=== PATIENT | male | born 1960 | race Caucasian/White ===

== ENCOUNTER 2017-02-22 05:51 | Inpatient (IN) | payer BC ==
--- NOTE | 2017-02-09 16:37 | HP ---
HISTORY AND PHYSICAL: DATE OF ADMISSION/SURGERY: 02/22/17. DATE OF OFFICE VISIT: 02/09/17. SURGEON: Savannah Wright MD * (DICTATED BY MARKEL WILLIS) PROCEDURE: Right total hip arthroplasty. CHIEF COMPLAINT: Right hip pain. HISTORY OF PRESENT ILLNESS: Mr. Reyes is a 56-year-old gentleman with complaints of right hip pain secondary to endstage osteoarthritis. He has failed conservative management and has elected to proceed with a right total hip arthroplasty which is scheduled for 02/22/17. PAST MEDICAL HISTORY: Hypertension, high cholesterol, GERD. PAST SURGICAL HISTORY: Hernia repair x2. CURRENT MEDICATIONS: 1. Tramadol. 2. Lisinopril/hydrochlorothiazide. 3. Atorvastatin. 4. Calcium. 5. Amlodipine. ALLERGIES: None. FAMILY HISTORY: Hypertension, heart disease, cancer. SOCIAL HISTORY: A 56-year-old gentleman lives with his . He does not smoke or use drugs. REVIEW OF SYSTEMS: A complete 14-point review of systems is reviewed with the patient is all negative or noncontributory. PHYSICAL EXAMINATION GENERAL: Well-developed, well-nourished, in no acute distress. VITAL SIGNS: He stands 5 feet 8 inches tall, weighs 190 pounds. Her blood pressure is 129/60, heart rate 68. HEENT: Normocephalic, atraumatic. NECK: Supple. No palpable nodes. PULMONARY: Lungs are clear to auscultation bilaterally. CARDIO: Regular rate and rhythm. Strong S1 and S2. ABDOMEN: Soft, nontender, nondistended. MUSCULOSKELETAL: Right lower extremity: Skin is intact. There are no open wounds or abrasions. 2+ dorsalis pedis pulses and intact sensation. Lower extremity muscle strength is intact at 5/5. ASSESSMENT AND PLAN: Mr. Reyes is a 56-year-old gentleman with complaints of right hip pain secondary to advanced osteoarthritis. He has failed conservative management and has elected to proceed with a right total hip arthroplasty which is scheduled by Dr. Wright on 02/22/17. Dr. Wright discussed the risks and benefits of the surgery at today's visit and all of his questions were answered. Coumadin, Percocet, and Colace were sent to his pharmacy for postoperative pain control and DVT prophylaxis. He will see Dr. Wright back 2 weeks after the surgery. MARKEL WILLIS [id number]/[facility] #: [id number] [facility] SYSTEMElaine
[~2017-02-22 05:51] MED LIST: Buffered Lidocaine 0.9% SYRIN* 5 ML/SYR SYRINGE INTRADERM ONE
[2017-02-22] MEDS ORDERED: ceFAZolin 2 GM PREMIX (*) 50 ML IVPB ONE (05:57)
[2017-02-22] MEDS ORDERED: Gabapentin CAP(*) 300 MG ONE (05:57)
[2017-02-22] MEDS ORDERED: Buffered Lidocaine 0.9% SYRIN* 5 ML/SYR SYRINGE ONE (05:57)
[2017-02-22] MEDS ORDERED: Gabapentin CAP(*) 400 MG PO ONE (06:00)
[2017-02-22] MEDS ORDERED: fentaNYL* 50 MCG/ML 2 ML VIAL (100 MCG VIAL) ONE ×3 (07:31→10:36)
[2017-02-22] MEDS ORDERED: Midazolam* 1 MG/ML 5 ML VIAL (5 MG) ONE (07:31)
[2017-02-22] MEDS ORDERED: Bupivacaine 0.5% SDV PF* 30 ML VIAL ONE (07:32)
[2017-02-22] MEDS ORDERED: Morphine PF AMP (0.5MG/ML)* 5 MG/10 ML AMP ONE (07:32)
[2017-02-22] MEDS ORDERED: Propofol* 500 MG/50 ML BTL ONE (07:52)
[2017-02-22] MEDS ORDERED: EPHEDrine (Pressors)* 50 MG/ML VIAL ONE (08:12)
[2017-02-22] MEDS ORDERED: Phenylephrine IV* 40 MCG/ML 10 ML SYRINGE ONE (08:35)
[2017-02-22] MEDS ORDERED: DiMENhydriNATE IV* 50 MG/ML VIAL IV PUSH PRN (08:42)
[2017-02-22] MEDS ORDERED: Ondansetron INJ* 2 MG/ML VIAL IV PRN (08:42)
[2017-02-22] MEDS ORDERED: Naloxone* 0.4 MG/ML 1 ML VIAL IV PRN (08:42)
[2017-02-22] MEDS ORDERED: Nalbuphine* 20 MG/ML 1 ML VIAL IV PRN (08:42)
[2017-02-22] MEDS ORDERED: Ketorolac INJ* 30 MG/ML 1 ML VIAL IV PRN (08:44)
--- NOTE | 2017-02-22 10:10 | RAD ---
Indication: Right hip replacement. Single view of the right hip taken in the operating room demonstrates right hip replacement. Femoral reamer in place. Acetabular cup is in place. IMPRESSION: Intraoperative control films for right hip arthroplasty.
[2017-02-22] MEDS: fentaNYL* 50 MCG/ML 2 ML VIAL (100 MCG VIAL) IV PRN ×3 (10:28→10:51)
[2017-02-22] MEDS ORDERED: Bisacodyl SUPP* 10 MG SUPP PR PRN (10:32)
[2017-02-22] MEDS ORDERED: diPHENhydraMINE IV* 50 MG/ML 1 ml VIAL (BENADRYL) IV PRN (10:32)
[2017-02-22] MEDS ORDERED: Acetaminophen TAB* 325 MG PO PRN (10:32)
[2017-02-22] MEDS ORDERED: Polyethylene Glycol 3350* 17 GM PACKET PO PRN (10:32)
[2017-02-22] MEDS ORDERED: Morphine INJ* 10 MG/ML 1 ML CARPUJECT IV PRN (10:32)
[2017-02-22] MEDS ORDERED: oxyCODONE TAB* 5 MG TAB ONE ×2 (10:36→20:58)
[2017-02-22] MEDS ORDERED: Ketorolac INJ* 30 MG/ML 1 ML VIAL ONE (10:36)
[2017-02-22] MEDS: oxyCODONE TAB* 5 MG TAB PO PRN ×3 (10:38→21:01)
--- NOTE | 2017-02-22 11:21 | RAD ---
Indication: Right total hip replacement. 2 views of the right hip and an AP view the pelvis demonstrates right hip replacement in satisfactory position. No loosening is noted. IMPRESSION: Right hip replacement in satisfactory position.
[2017-02-22] MEDS ORDERED: HYDROmorphone INJ* 1 MG/ML CARPUJECT SYRINGE IV PRN (16:40)
[2017-02-22] MEDS: ceFAZolin 1 GM VIAL(*) 1 GM in NS 0.9% 50 ML* 50 ML IVPB SCH ×2 (16:54→23:42)
[2017-02-22] MEDS ORDERED: Warfarin TAB(*) 4 MG PO ONE (17:00)
[2017-02-22] MEDS: Docusate CAP* 100 MG PO SCH (20:55)
[2017-02-22] MEDS: Magnesium Hydroxide LIQ* 30 ML UDC PO SCH (20:55)
[2017-02-23] MEDS ORDERED: Ondansetron TAB* 4 MG PO PRN (00:42)
[2017-02-23] MEDS ORDERED: Ondansetron INJ* 2 MG/ML VIAL IV PRN (00:42)
[2017-02-23] MEDS: oxyCODONE TAB* 5 MG TAB PO PRN ×5 (01:39→20:41)
[2017-02-23 06:31] LABS: Hematocrit 33 % (42-52); Hemoglobin 11.1 g/dl (14.0-18.0)
[2017-02-23 06:47] LABS: BUN/Creatinine Ratio 12.8 (8-20); Calcium 7.9 mg/dL (8.6-10.3); EGFR African American 131.5 (>60); EGFR Non-African American 102.2 (>60); Potassium 3.9 mmol/L (3.5-5.0)
[2017-02-23] MEDS: Lisinopril TAB* 10 MG PO SCH ×2 (07:31→08:54)
[2017-02-23] MEDS: amLODIPine TAB* 5 MG PO SCH ×2 (07:31→08:54)
[2017-02-23] MEDS: Hydrochlorothiazide TAB* 25 MG PO SCH ×2 (07:31→08:54)
[2017-02-23] MEDS: ceFAZolin 1 GM VIAL(*) 1 GM in NS 0.9% 50 ML* 50 ML IVPB SCH (07:56)
[2017-02-23] MEDS: Vitamin THERAPEUTIC TAB PO SCH (08:51)
[2017-02-23] MEDS: Atorvastatin* 20 MG TAB PO SCH (08:51)
[2017-02-23] MEDS: Docusate CAP* 100 MG PO SCH ×2 (08:52→20:42)
[2017-02-23] MEDS: Magnesium Hydroxide LIQ* 30 ML UDC PO SCH ×2 (08:53→20:42)
[2017-02-23] MEDS: oxyCODONE/Acetamin 5/325 MG* TAB PO PRN ×2 (09:25→14:04)
[2017-02-23] MEDS: Enoxaparin(*) 40 MG/0.4 ML SYR SUBCUT SCH (11:35)
--- NOTE | 2017-02-23 11:40 | PN ---
Progress Note - Progress Note Date of Service: 02/23/17 SOAP: Subjective: []Patient seen OOB in his chair. His hip pain is minimal, had more discomfort in his lumbar spine due to sleeping on his back, feels better now in chair. Denies SOB, CP or dizziness. Objective: [] Vital Signs Temp 99.9 F 02/23/17 04:27 Pulse 70 02/23/17 08:07 Resp 16 02/23/17 11:25 BP 122/59 02/23/17 08:07 Pulse Ox 97 02/23/17 11:16 Intake & Output 02/22/17 02/23/17 02/23/17 18:59 06:59 18:59 Intake Total 4370 2183 470 Output Total 1750 3500 Balance 2620 -1317 470 Intake: IV Fluids 3650 1883 LR 3650 1883 Oral 720 300 470 Output: Smith 1750 3500 Laboratory Results - last 24 hr 02/23/17 02/23/17 02/23/17 05:54 05:54 05:54 Hgb 11.1 L Hct 33 L INR (Anticoag Therapy) 1.02 Sodium 131 L Potassium 3.9 Chloride 99 L Carbon Dioxide 27 Anion Gap 5 BUN 10 Creatinine 0.78 Est GFR ( Amer) 131.5 Est GFR (Non-Af Amer) 102.2 BUN/Creatinine Ratio 12.8 Glucose 136 H Calcium 7.9 L Right hip dressings dry and intact +DF/PF right ankle calf NT and soft sensation and circulation intact Assessment: []s/p Right total hip arthroplasty POD #1 Plan: []PT/OT WBAT RLE Coumadin with Lovenox bridge- 8 mg today Home in 1-2 days
--- NOTE | 2017-02-23 13:23 | OP ---
OPERATIVE NOTE: DATE OF OPERATION: 02/22/17 - Inpatient, [facility] room 334-01. DATE OF : 56 ATTENDING SURGEON: Savannah Wright MD. MANAGER DIGITAL: MARKEL Mason. Ms. Wise did help throughout the procedure with preparation of the leg, wound retraction, manipulation of the hip, and wound closure. ANESTHESIOLOGIST: Dr. Celis. ANESTHESIA: Spinal. PRE-OP DIAGNOSIS: Severe end-stage degenerative osteoarthritis of the right hip joint. POST-OP DIAGNOSIS: Severe end-stage degenerative osteoarthritis of the right hip joint. OPERATIVE PROCEDURE: Right total hip arthroplasty. HARDWARE USED: Uncemented Shalini total hip hardware. For the cup a Tritanium hemispherical cluster hole shell 56E, a single 20-mm cancellous bone screw was used. For the liner an MDM cementless liner 42E. For the femoral stem an Accolade TMZF size 3.5 with a 132 degree neck. For the head a 28 -4 Biolox delta ceramic V40 femoral head with episcopalian MDM X3 insert, E. BRIEF HISTORY/INDICATIONS: Mr. Reyes is a 56-year-old gentleman with several years of increasingly severe right hip pain related to his adv anced osteoarthritis. He failed conservative treatment with antiinflammatories, physical therapy, pain medication, and activity modification. Radiographs confirmed ppyv-[id number] arthritis of the right hip joint. Due to continued pain and decreased quality of life, the patient elected to undergo a right total hip arthroplasty. Informed consent was obtained from the patient. He understood the risks of this procedure included, but were not limited to, bleeding, infection, damage to nearby structures, continued pain, need for further surgery , intraoperative fracture, nerve palsy, hardware failure or loosening, leg length discrepancy, dislocation, stroke, heart attack, blood clot, and . He wished to proceed. INTRAOPERATIVE FINDINGS: Intraoperatively, the patient was noted to have complete loss of cartilage at the femoral head and acetabulum. He had significant osteophyte formation over the medial acetabulum. DESCRIPTION OF PROCEDURE: Mr. Reyes was identified in the preanesthesia unit. Right lower extremity was marked as the correct operative site. Informed consent was signed and placed in the chart. The patient was taken to the operating room and placed under spinal anesthesia without difficulty. Smith catheter was placed. The patient was placed in the left lateral decubitus position on the PEG board. All bony prominences were well padded. Right lower extremity was prepped and draped in the usual sterile fashion. Preop time-out was made to correctly identify the patient side and site. Appropriate perioperative antibiotics were given within 1 hour of incision. A 14-cm posterior hip incision was made with a 10 blade and carried down to the lateral fascial layer. Lateral fascial layer was incised in line with the skin incision. Charnley retractor was placed. The piriformis and conjoint tendons were identified on the posterolateral femur and elevated with electrocautery. These were tagged with #5 Ethibond. Next, electrocautery was used to make a standard posterolateral capsular flap. This was also tagged with #5 Ethibond. The hip was carefully dislocated. Lesser troch to the center of the femoral head measured 58 mm. The oscillating saw was used to make the appropriate femoral neck cut. Femoral head was sent to pathology. The femur was carefully retracted anteriorly. After appropriate placement of retractors the acetabulum was easily visualized. Long-handled knife was used to remove any remaining labrum from the acetabular rim. The acetabulum was sequentially reamed up to a size 55. A bleeding subchondral bone bed was obtained. Size 55 trial had god fit. Final implant chosen was a 56 Tritanium cluster hole shell. This was impacted into the acetabulum without difficulty. Excellent stability was obtained. Appropriate anteversion and abduction angle was obtained. A single 20 mm screw was placed in the superior posterior quadrant for extra stability. MDM cementless liner was chosen. This was impacted into the acetabulum without difficulty. Stability of the liner was checked and rechecked and noted to be stable. Next, attention was turned to preparation of the proximal femur. Box cut osteotome and canal finder were used to enter the proximal femur. Proximal femur was sequentially broached up to a size 3.5. Size 3.5 broach had good fit. There was appropriate anteversion. A 132 neck trial was placed as well as a 28 +0 femoral head trial. Lesser troch to the center of the femoral head measured 62 mm, therefore a 28 -4 femoral head trial was chosen as well as the appropriate 28/48/42E MDM liner insert trial. The hip was reduced and taken through a range of motion. The hip was stable in all positions. There was appropriate soft tissue tension and leg lengths. The hip was carefully dislocated. All trials were carefully removed. Final femoral stem chosen was an Accolade TMZF with a size 3.5 with a 132-degree neck. This was impacted into the femoral canal without difficulty. There was good stability and anteversion. For the final femoral head Biolox delta ceramic 28 -4 femoral head was chosen as well as MDM insert X3, 28/48/42E. This was impacted on to the femoral neck without difficulty. Lesser troch to the center of the femoral head measured approximately 58 mm. The hip was copiously irrigated with sterile saline. The hip was carefully reduced and taken through range of motion. The hip was stable in all positions. Previously tagged capsule and tendons were reapproximated to the posterolateral femur using 2 trochanteric drill holes. The lateral fascial layer was reapproximated using interrupted #1 Vicryl. The rest of the incision was closed in a layered fashion using 0 and 2-0 Vicryl. Skin was closed using running 3-0 Monocryl and Dermabond. Sterile Adaptic, 4x4s, and paper tape were used to cover the incision. The patient's anesthesia was reversed without difficulty. He was taken to the PACU in stable condition. Intended weight bearing will be weightbearing as tolerated. Intended DVT prophylaxis will be Coumadin with a Lovenox bridge. [id number]/[facility] #: [id number] NATALIA
[2017-02-23] MEDS ORDERED: Warfarin TAB(*) 4 MG PO ONE (17:00)
[2017-02-24] MEDS: oxyCODONE TAB* 5 MG TAB PO PRN ×3 (00:49→09:33)
[2017-02-24 08:25] LABS: Hematocrit 32 % (42-52); Hemoglobin 10.9 g/dl (14.0-18.0)
--- NOTE | 2017-02-24 09:07 | PN ---
Progress Note - Progress Note Date of Service: 02/24/17 SOAP: Subjective: Pt. is alert, pain controlled. Objective: RLE - dressing changed, inc c/d/i. distally nvi. min edema. Vital Signs: Temp Pulse Resp BP Pulse Ox 99.0 F 77 16 121/67 97 02/24/17 07:31 02/24/17 07:31 02/24/17 07:33 02/24/17 07:31 02/24/17 08:22 Laboratory Results - last 24 hr 02/24/17 02/24/17 07:54 07:54 Hgb 10.9 L Hct 32 L INR (Anticoag Therapy) 1.14 H Assessment: 56 yo M pod 2 s/p RTHA Plan: wbat rle lovenox today, d/c coumadin home on ecasa d/c to home today
[2017-02-24] MEDS: Atorvastatin* 20 MG TAB PO SCH (09:31)
[2017-02-24] MEDS: Docusate CAP* 100 MG PO SCH (09:31)
[2017-02-24] MEDS: Vitamin THERAPEUTIC TAB PO SCH (09:32)
[2017-02-24] MEDS: amLODIPine TAB* 5 MG PO SCH (09:32)
[2017-02-24] MEDS: Lisinopril TAB* 10 MG PO SCH (09:32)
[2017-02-24] MEDS: Hydrochlorothiazide TAB* 25 MG PO SCH (09:32)
[2017-02-24] MEDS: Magnesium Hydroxide LIQ* 30 ML UDC PO SCH (09:36)
[2017-02-24] MEDS: Enoxaparin(*) 40 MG/0.4 ML SYR SUBCUT SCH (11:22)
[2017-02-24 11:51] VITALS: BP 113/67
--- NOTE | 2017-02-24 13:16 | DS ---
AMENDED REPORT NOW INCLUDES COSIGNER DESIGNATION - ESIGNED BEFORE ADJUSTMENT DISCHARGE SUMMARY: DATE OF ADMISSION: 02/22/17 DATE OF DISCHARGE: 02/24/17 PROVIDER: Savannah Wright MD * (DICTATED BY MARKEL HENRY) ADMITTING DIAGNOSIS: Severe end-stage osteoarthritis of the right hip. DISCHARGE DIAGNOSIS: Severe end-stage osteoarthritis of the right hip, status post right total hip arthroplasty. HISTORY OF PRESENT ILLNESS: Mr. Reyes is a 56-year-old gentleman, who has had ongoing complaints of right hip pain secondary to severe osteoarthritis. He failed conservative management and elected to proceed with right total hip arthroplasty. HOSPITAL COURSE: On 02/22/17, the patient was admitted to [facility] and underwent successful right total hip arthroplasty by Dr. Wright. He recovered briefly in the postanesthesia care unit and was transferred to the short-stay surgical unit in stable condition. His pain was well controlled with oral and IV pain medications on postop day 0, he was also given 8 mg of Coumadin. On postop day 1, the patient's pain was well controlled with oral pain medication. H and H was stable at 11.1, and 33, INR was 1.02. He was given an additional 8 mg of Coumadin on the evening of postop day 1. He was able to ambulate with physical therapy and the use of a rolling walker. Postop day 2, the patient pain was controlled with oral pain medications only. He had H and H of 10.9 and 32. INR was 1.14 with 8 mg of Coumadin previously. He again was able to ambulate well with a rolling walker, with physical therapy. He was reminded of posterior hip precautions throughout his hospital stay. His vital signs remained stable and he was afebrile throughout his hospital course as well. Postop day 2, the patient was found stable for discharge home. DISCHARGE MEDICATIONS: The patient will have: 1. Percocet 5/325 mg 1 to 2 tablets p.o. q.4 to 6 hours p.r.n. pain. 2. Colace 100 mg p.o. b.i.d. 3. Aspirin 325 mg p.o. b.i.d. He will resume his home medications of: 1. Atorvastatin 20 mg p.o. daily. 2. Lisinopril/HCTZ 20/12.5 mg p.o. daily. 3. Amlodipine 5 mg p.o. daily. DISCHARGE INSTRUCTIONS: The patient is understanding to keep his incision clean and dry until postop day 4. He may remove his dressing and shower normally at that time. He will apply a dry dressing as needed after that. He is understanding not to submerge the incision in a bathtub, hot tub or swimming pool. He was again reminded to continue with his posterior hip precautions. He will be weightbearing as tolerated with the use of a rolling walker. He will have visiting nurse for wound care and home physical therapy. He will follow up in the office 10 to [address] Wright. He is understanding to call the office with any questions or concerns. He is to go directly to the emergency room with any chest pain, shortness of breath, fever greater than 101.5, calf pain or swelling. MARKEL HENRY [id number]/[facility] #: [id number] NATALIA
== END 2017-02-24 12:20 | disposition home health service (06) | DRG 301 ==
LOC: AA 05:51 → SSU 11:46
PROVIDERS: ADMIT Orthopaedic Surgery Adult Reconstructive Orthopaedic Surgery; ATTEND Orthopaedic Surgery Adult Reconstructive Orthopaedic Surgery
PROC: 0SR904A Replacement of Right Hip Joint with Ceramic on Polyethylene Synthetic Substitute, Uncemented, Open Approach (ICD-10-PCS; principal; 2017-02-22 07:30)
DX: M16.11 Unilateral primary osteoarthritis, right hip (principal); I10 Essential (primary) hypertension; Z79.82 Long term (current) use of aspirin; E78.00 Pure hypercholesterolemia, unspecified; K21.9 Gastro-esophageal reflux disease without esophagitis; Z82.49 Family history of ischemic heart disease and other diseases of the circulatory system; Z80.9 Family history of malignant neoplasm, unspecified; M48.06 Spinal stenosis, lumbar region; M25.751 Osteophyte, right hip
CPT/HCPCS: 36415; 80048; 85014; 85018; 85610; 94760; A9270-GY; C1713; C1776; J0690; J1650; J1885; J2250; J2270; J2405; J2704; J3010

== ENCOUNTER 2017-05-10 06:26 | Inpatient (IN) | payer BC ==
--- NOTE | 2017-04-27 12:22 | HP ---
HISTORY AND PHYSICAL: DATE OF SURGERY: 05/10/17 DATE OF OFFICE VISIT: 04/27/17 SURGEON: Savannah Wright MD * (DICTATED BY MARKEL WILLIS) PROCEDURE: Left total hip arthroplasty. CHIEF COMPLAINT: Left hip pain. HISTORY OF PRESENT ILLNESS: Mr. Reyes is a 56-year-old gentleman with continued complaints of left hip pain despite conservative management. He has elected to proceed with a left total hip arthroplasty which is scheduled for 05/10/[address] Wright. PAST MEDICAL HISTORY: Hypertension, GERD, and high cholesterol. PAST SURGICAL HISTORY: Right total hip arthroplasty, hernia repair x2. CURRENT MEDICATIONS: 1. Tramadol. 2. Lisinopril/hydrochlorothiazide. 3. Atorvastatin. 4. Amlodipine. 5. Aspirin. ALLERGIES: None. FAMILY HISTORY: Hypertension, heart disease, and cancer. SOCIAL HISTORY: A 56-year-old gentleman, lives with his . He works as a share dairy farmer. He does not smoke or use drugs. Uses occasional alcohol. REVIEW OF SYSTEMS: A complete 14-point review of systems was reviewed with the patient. It was positive for GERD. He denies a history of DVT, hepatitis C, HIV, MRSA, or anesthesia problems. PHYSICAL EXAMINATION GENERAL: He is well developed, well nourished, in no acute distress. He is alert and oriented x3, pleasant mood and appropriate affect. VITAL SIGNS: He stands 5 feet 8 inches tall, weighs 190 pounds. His blood pressure is 128/80, his heart rate is 78. HEENT: Normocephalic, atraumatic. NECK: Supple. No palpable lymph nodes. PULMONARY: The lungs are clear to auscultation bilaterally. CARDIO: Regular rate and rhythm. Strong S1, S2. ABDOMEN: Soft, nontender, and nondistended. NEUROLOGIC: Cranial nerves II through XII are intact. MUSCULOSKELETAL: Left lower extremity, the skin is intact. There are no open wounds or abrasions. He walks with an antalgic gait, favoring his left hip. He has decreased internal and external rotation of the left hip. He has got 5/ 5 lower extremity strength, 2+ dorsalis pedis pulses and intact sensation. ASSESSMENT AND PLAN: Mr. Reyes is a 56-year-old gentleman with continued complaints of left hip pain secondary to advanced osteoarthritis. He has failed conservative management and elected to proceed with a left total hip arthroplasty which is scheduled for 05/10/[address] Wright discussed the risks and benefits of the surgery at today's visit and all of his questions were answered. Postoperatively, he will be placed on aspirin twice daily for DVT prophylaxis. Colace and Percocet were sent to his pharmacy for postoperative pain control. He will follow up with Dr. Wright in 2 weeks after the surgery. MARKEL WILLIS [id number]/[facility] #: [id number] NATALIA
[~2017-05-10 06:26] MED LIST changes: +Buffered Lidocaine 0.9% SYRIN* 5 ML/SYR SYRINGE ONE; +Dexamethasone IV* 4 MG/ML 1 ML (4 MG) IV SLOW PU ONE; +Dexamethasone IV* 4 MG/ML 1 ML (4 MG) ONE; +Famotidine IV* 10 MG/ML 2 ML (20 mg) IV ONE; +Famotidine IV* 10 MG/ML 2 ML (20 mg) ONE; +ceFAZolin 2 GM PREMIX (*) 2 GM/50 ML BAG IVPB ONE
[2017-05-10] MEDS ORDERED: KETAMINE HCL* 50 MG/ML 10 ML VIAL ONE (07:23)
[2017-05-10] MEDS ORDERED: Midazolam* 1 MG/ML 10 ML VIAL (10 MG) ONE (07:23)
[2017-05-10] MEDS ORDERED: Morphine PF AMP (0.5MG/ML)* 5 MG/10 ML AMP ONE (07:23)
[2017-05-10] MEDS ORDERED: Ondansetron INJ* 2 MG/ML VIAL ONE (07:25)
[2017-05-10] MEDS ORDERED: Propofol* 10 MG/ML 20 ML BTL IV PUSH ONE ×2 (07:25→09:54)
[2017-05-10] MEDS ORDERED: Bupivacaine 0.5% SDV PF* 30 ML VIAL ONE (07:25)
[2017-05-10] MEDS ORDERED: oxyCODONE/Acetamin 5/325 MG* TAB PO PRN ×2 (08:22)
[2017-05-10] MEDS ORDERED: Nalbuphine* 20 MG/ML 1 ML VIAL IV PRN ×2 (08:22)
[2017-05-10] MEDS ORDERED: Naloxone* 0.4 MG/ML 1 ML VIAL IV PRN (08:22)
[2017-05-10] MEDS ORDERED: Ondansetron INJ* 2 MG/ML VIAL IV PRN (08:22)
[2017-05-10] MEDS ORDERED: DiMENhydriNATE IV* 50 MG/ML VIAL IV PUSH PRN (08:22)
[2017-05-10] MEDS ORDERED: Glycopyrrolate IV* 0.2 MG/ML 1 ML VIAL ONE (08:26)
[2017-05-10] MEDS ORDERED: EPHEDrine (Pressors)* 50 MG/ML VIAL ONE (08:34)
[2017-05-10] MEDS ORDERED: Atropine 1MG/ML INJ* 1 ML VIAL ONE (08:36)
[2017-05-10] MEDS ORDERED: Scopolamine 1.5 mg* PATCH TRANSDERM SCH (09:00)
[2017-05-10] MEDS ORDERED: Acetaminophen TAB* 325 MG PO PRN (09:06)
[2017-05-10] MEDS ORDERED: Bisacodyl SUPP* 10 MG SUPP PR PRN (09:06)
[2017-05-10] MEDS ORDERED: Polyethylene Glycol 3350* 17 GM PACKET PO PRN (09:06)
[2017-05-10] MEDS: Ropivacaine* 300 MG in NS 0.9% 250 ML* 240 ML EPIDURAL SCH ×2 (10:52→11:42)
--- NOTE | 2017-05-10 11:07 | RAD ---
INDICATION: Total left hip replacement surgery. COMPARISON: Comparison is made with a prior x-ray study of the left hip from March 19, 2017. TECHNIQUE: An AP view of the pelvis and frontal and lateral views of the left hip were obtained. FINDINGS: The patient is status post total left hip replacement surgery and remote total right hip replacement surgery. The bones and prostheses are in normal alignment. There is a small amount of air within the soft tissues of the proximal left thigh consistent with the patient's recent surgery. IMPRESSION: STATUS POST TOTAL LEFT HIP REPLACEMENT SURGERY.
--- NOTE | 2017-05-10 11:11 | RAD ---
INDICATION: Left total hip replacement surgery. COMPARISON: Comparison is made with a prior x-ray study of the left hip from March 19, 2017. TECHNIQUE: An AP view of the pelvis was obtained in the operating room. FINDINGS: There is been placement of a left acetabular prostheses. There is also a left femoral template in place. The bones and prostheses are in normal alignment. IMPRESSION: INTRAOPERATIVE CONTROL FILMS.
[2017-05-10] MEDS: ceFAZolin 1 GM VIAL(*) 1 GM in D5W 50 ML BAG* 50 ML IVPB SCH (16:37)
[2017-05-10] MEDS ORDERED: Warfarin TAB(*) 6 MG PO ONE (17:00)
[2017-05-10] MEDS: Magnesium Hydroxide LIQ* 30 ML UDC PO SCH (20:17)
[2017-05-10] MEDS: Docusate CAP* 100 MG PO SCH (20:17)
--- NOTE | 2017-05-10 22:28 | CONS ---
CONSULTATION REPORT: DATE OF CONSULT: 05/10/17 PRIMARY CARE PROVIDER: Dr. René Moise. ATTENDING PHYSICIAN: Dr. Patricio Mercer (dictated by Sal Cheney NP). PHYSICIAN REQUESTING CONSULTATION: Dr. Savannah Wright. REASON FOR CONSULTATION: Co-medical management in a patient with a history of hypertension, GERD, and hyperlipidemia. HISTORY OF PRESENT ILLNESS: Mr. Reyes is a 56-year-old male with past medical history significant for hypertension, GERD and hyperlipidemia, who underwent an elective left total hip arthroplasty with Dr. Wright after failing conservative medical management. Preoperatively, the patient states that he has been in a good state of health except for left hip pain. He denies any recent fever, chills, chest pain, shortness of breath, nausea, vomiting, diarrhea, urinary symptoms, lightheadedness, or dizziness. Postoperatively, the patient is doing well. He states his pain is controlled. The hospitalists were asked to assist with the medical management of this patient during his postoperative period. PAST MEDICAL HISTORY: 1. Hypertension. 2. GERD. 3. Hyperlipidemia. PAST SURGICAL HISTORY: 1. Status post a right total hip arthroplasty. 2. Status post hernia repair x2. HOME MEDICATIONS: Include: 1. Tramadol 100 mg oral every evening. 2. Lisinopril/hydrochlorothiazide 20/12.5 one tablet oral every morning. 3. Atorvastatin 20 mg oral daily. 4. Amlodipine 5 mg oral daily. 5 Aspirin 325 mg oral twice daily. ALLERGIES: No known drug allergies. FAMILY HISTORY: The patient has a family history of hypertension, heart disease , and cancer. SOCIAL HISTORY: The patient denies tobacco or recreational drug use. He occasionally drinks alcohol. His Debbie Reyes will be his surrogate decision maker in the event he is unable to make decisions for himself. REVIEW OF SYSTEMS: A 14-point review of systems was performed. All the pertinent positives and negatives are mentioned in the history of present illness. The remaining review of systems is negative. PHYSICAL EXAMINATION: Vital Signs: Temperature 98.8, heart rate 59, respiratory rate 20, O2 sat 100% on room air, blood pressure 108/66. General Appearance: The patient is alert, pleasant and appears to be in no acute distress. Head: Normocephalic, atraumatic. EENT: Pupils are equal and reactive to light. Extraocular movements are intact. Neck is supple. Cardiovascular: Regular rate and rhythm. S1, S2 present. There are no murmurs , rubs, or gallops heard. Respiratory: There is no accessory muscle use and lungs are clear to auscultation bilaterally. Abdomen: Soft, nontender, and nondistended. There are bowel sounds present x4. Extremities: There is no lower extremity edema. DP and PT pulses are 2+ and symmetrical. Musculoskeletal: There is no clubbing or cyanosis noted. The patient exhibits good strength in all extremities. Skin: There are no rashes or abnormalities seen. The patient has a dressing to his left hip that is clean, dry, and intact. Neurological: Cranial nerves II through XII are grossly intact. The patient moves all extremities. He is alert and oriented x4. Psychological: The patient is calm and cooperative. DIAGNOSTIC STUDIES/LAB DATA: Preoperative labs from 04/27/17, sodium 134, potassium 4.2, chloride 100, CO2 27, BUN 18, creatinine 0.94, glucose 91. White blood cell count 10.0, hemoglobin 13.7, hematocrit 41, and platelet count 339. Urinalysis negative. IMPRESSION: Mr. Reyes is a 56-year-old male with past medical history significant for hypertension, gastroesophageal reflux disease and hyperlipidemia , who presented to the [facility] today for an elective left total hip arthroplasty with Dr. Wright. Hospitalists were asked to assist with the co- medical management of this patient during his hospitalization. ASSESSMENT/PLAN: 1. Status post left total hip arthroplasty. Postop day. Management per Orthopedic Surgery. The patient will be placed on a bowel regimen and pain management. He will have his H and H trended. He will have physical therapy and occupational therapy. He will have a urinary catheter in place until postop day#1. 2. Hypertension. I am going to continue the patient's amlodipine, but hold his lisinopril and hydrochlorothiazide and resume when appropriate. 3. Hyperlipidemia. We will continue the patient's atorvastatin. 4. Fluids, electrolytes, and nutrition. The patient will be on a clear liquid , advance diet as tolerated. 5. DVT prophylaxis. Per Orthopedics, the patient will be on Lovenox bridged to warfarin. 6. Code status. Full code. 7. Disposition. Inpatient with disposition per Orthopedic Surgery. TIME SPENT: Time for this consultation was approximately 45 minutes, greater than half of that was spent with the patient discussing medications, past medical history, the events leading up to his arrival today, and performing a physical examination. SAL CHENEY, DUPLICATOR PUNCH SET UP OPERATOR [id number]/[facility] #: [id number] NATALIA
[2017-05-11] MEDS: ceFAZolin 1 GM VIAL(*) 1 GM in D5W 50 ML BAG* 50 ML IVPB SCH ×2 (00:57→09:15)
--- NOTE | 2017-05-11 03:26 | OP ---
DATE OF OPERATION: 05/10/17 - ROOM #347 DATE OF : 56 ATTENDING SURGEON: Savannah Wright MD SENIOR ACCOUNT DIRECTOR: MARKEL Mandel. Mr. Marie did help throughout the procedure with preparation of the leg, wound retraction, manipulation of the hip, and wound closure. ANESTHESIOLOGIST: Dr. Clark. ANESTHESIA: Spinal. PRE-OP DIAGNOSIS: Severe end-stage degenerative osteoarthritis of the left hip joint. POST-OP DIAGNOSIS: Severe end-stage degenerative osteoarthritis of the left hip joint. OPERATIVE PROCEDURE: Left total hip arthroplasty. COMPLICATIONS: None. ESTIMATED BLOOD LOSS: 300 cc. SPECIMENS: Femoral head and acetabular reaming sent to Pathology. HARDWARE USED: This is Shalini Uncemented total hip arthroplasty hardware. For the acetabular cup, a Tritanium cluster hole shell 56E, a single 20-mm screws used. For the insert, a MDM cementless liner 42E. For the stem, an Accolade TMZF size 4 with a 132-degree neck angle. For the head of Biolox delta ceramic V40 femoral head 28 -4. For the insert, an MDM taoism X3 insert, 28/48/42E. BRIEF HISTORY/INDICATION: Mr. Reyes is a 56-year-old gentleman with years of increasingly severe left hip pain. Radiographs showed [id number] arthritis of the left hip. He failed conservative treatment with the anti-inflammatories , pain medication, physical therapy, ambulatory assistive devices, and intraarticular injection. Due to continued pain and decreased quality of life, he elected to undergo left total hip arthroplasty. Informed consent was obtained from the patient. He understood the risks of surgery included, but were not limited to, bleeding, infection, damage to nearby structures, continued pain, need for further surgery, intraoperative fracture, nerve palsy, hardware failure or loosening, dislocation, leg length discrepancy, stroke, heart attack, blood clot, and . He wished to proceed. INTRAOPERATIVE FINDINGS: Intraoperatively, the patient was noted to have end- stage arthritis of the hip joint. There was complete loss of cartilage along the femoral head and acetabulum, significant osteophyte formation anteriorly. DESCRIPTION OF PROCEDURE: Mr. Reyes was identified in the preanesthesia unit. His left lower extremity was marked as the correct operative side. Informed consent was signed and placed in the chart. The patient was taken to the operating room and placed under spinal anesthesia without difficulty. Smith catheter was placed. The patient was placed in the right lateral decubitus position on the PEG board and all bony prominences were well padded. Left lower extremity was prepped and draped in the usual sterile fashion. Preop time -out was made to correctly identify the patient's side and site. Appropriate perioperative antibiotics were given within 1 hour of incision. A 14-cm posterior hip incision was made with a 10 blade and carried down to the lateral fascial layer. Lateral fascial layer was incised in line with the skin incision. Charnley retractor was placed. The piriformis and conjoint tendons were identified and tagged with #5 Ethibond. Next, electrocautery was used to make a posterolateral capsular flap. This was also tagged with #5 Ethibond. The hip was carefully dislocated. Lesser troch to the center of the femoral head measured 55 mm. The oscillating saw was used to make the appropriate femoral neck cut. The femoral head was set aside. The femur was retracted anteriorly. After appropriate placement of retractors, the acetabulum was easily visualized. Long-handled knife was used to sharply remove any labrum from around the acetabular rim. The acetabulum was sequentially reamed up to a size 55. There was bleeding subchondral bone bed. 55 trial had good fit. A Tritanium cluster hole shell 56E was chosen. This was impacted into the acetabulum without difficulty. Good stability of the cup was obtained. A single 20 mm screw was placed in the superior posterior quadrant for extra stability. An MDM cementless liner 42E was chosen and impacted into the acetabulum. Stability of the liner was checked and rechecked and noted to be stable. Next, attention was turned to preparation of the femur. Canal finder was used to enter the proximal femur. Proximal femur was sequentially broached up to a size 4. Size 4 had excellent fit and appropriate anteversion. A 132 neck trial was chosen as well as a 28 -4 head trial. Lesser troch to the center of the femoral head measured 56 mm. The hip was reduced and taken through a range of motion. The hip was stable in all positions. There was appropriate leg lengths and soft tissue tension. The hip was carefully dislocated. All trials were removed. Final implant chosen was an accolade TMZF size 4 with a 132 degree neck. This was impacted into the femoral canal without difficulty. There was excellent stability and anteversion. A 28 -4 Biolox delta ceramic V40 femoral head was chosen as well as the MDM taoism X3 insert, 28/48/42E. This was impacted on to the femoral neck. Lesser troch to the center of the femoral head measured 56 mm. The hip was reduced and taken through a range of motion. The hip was stable in all positions. The hip was copiously irrigated with sterile saline. Previously tagged capsule and tendons were reapproximated to the posterolateral femur through 2 trochanteric drill holes. Lateral fascial layer was reapproximated using interrupted #1 Vicryl. The rest of the incision was closed in a layered fashion using 0 and 2-0 Vicryl. Skin was closed using running 3-0 Monocryl and Dermabond. Sterile Adaptic, 4x4s, and paper tape were used to cover the incision. The patient's anesthesia was reversed without difficulty. He was taken to the PACU in stable condition. Intended weightbearing will be weightbearing as tolerated. Intended DVT prophylaxis will be Coumadin with a Lovenox bridge. [id number]/[facility] #: [id number] [facility] SYSTEMElaine
[2017-05-11 05:46] LABS: Hematocrit 32 % (42-52); Hemoglobin 10.9 g/dl (14.0-18.0)
[2017-05-11 05:58] LABS: BUN/Creatinine Ratio 19.5 (8-20); Calcium 8.1 mg/dL (8.6-10.3); EGFR African American 124.1 (>60); EGFR Non-African American 96.5 (>60); Potassium 3.8 mmol/L (3.5-5.0)
[2017-05-11] MEDS ORDERED: Ondansetron TAB* 4 MG PO PRN (06:00)
[2017-05-11] MEDS ORDERED: oxyCODONE/Acetamin 5/325 MG* TAB PO PRN (06:00)
[2017-05-11] MEDS ORDERED: traZODone TAB* 50 MG TAB PO PRN (06:00)
[2017-05-11] MEDS ORDERED: diPHENhydraMINE IV* 50 MG/ML 1 ml VIAL (BENADRYL) IV PRN (06:00)
[2017-05-11] MEDS ORDERED: Morphine INJ* 2 MG/ML 1 ML SYRINGE (TWO MG - NEW SYRINGE VERSION) IV PRN (06:00)
[2017-05-11] MEDS ORDERED: Ondansetron INJ* 2 MG/ML VIAL IV PRN (06:00)
[2017-05-11] MEDS ORDERED: diPHENhydraMINE PO* 25 MG PO PRN (06:00)
[2017-05-11] MEDS: Atorvastatin* 20 MG TAB PO SCH (08:05)
[2017-05-11] MEDS: Docusate CAP* 100 MG PO SCH ×2 (08:05→20:33)
[2017-05-11] MEDS: oxyCODONE TAB* 5 MG TAB PO PRN ×3 (08:05→20:32)
[2017-05-11] MEDS: Magnesium Hydroxide LIQ* 30 ML UDC PO SCH ×2 (08:05→20:33)
[2017-05-11] MEDS ORDERED: Hydrochlorothiazide TAB* 25 MG PO SCH (09:00)
[2017-05-11] MEDS ORDERED: Lisinopril TAB* 10 MG PO SCH (09:00)
--- NOTE | 2017-05-11 09:09 | PN ---
Progress Note - Progress Note Date of Service: 05/11/17 SOAP: Subjective: 56 y/o male s/p L MARSHALL by Dr. Wright 05/10. Patient overall feeling well, pain controlled with pain medication, requesting ASA as last MARSHALL coumadin levels were not theraputic and very active post-op. VSS afebrile overnight. Objective: General- Well appearing, NAD, AO MSK- surgical dressing intact, no drainage, odor, no induration around site, no ecchymosis, + df/pf b/l, neg homans b/l, PT 2+ b/l, SITLT b/l les grossly. Laboratory Results - last 24 hr 05/11/17 05/11/17 05/11/17 05:34 05:34 05:34 Hgb 10.9 L Hct 32 L INR (Anticoag Therapy) 0.94 Sodium 133 Potassium 3.8 Chloride 102 Carbon Dioxide 27 Anion Gap 4 BUN 16 Creatinine 0.82 Est GFR ( Amer) 124.1 Est GFR (Non-Af Amer) 96.5 BUN/Creatinine Ratio 19.5 Glucose 139 H Calcium 8.1 L Vital Signs Temp 98.1 F 05/11/17 08:01 Pulse 58 05/11/17 08:01 Resp 16 05/11/17 12:55 BP 115/67 05/11/17 08:01 Pulse Ox 97 05/11/17 08:01 Intake & Output 05/10/17 05/11/17 05/11/17 18:59 06:59 18:59 Intake Total 3710 1960 1084 Output Total 1200 1675 Balance 2510 285 1084 Intake: IV Fluids 3450 950 980 LR 3400 950 980 NS 50ML, Cefazolin 2G 50 IVPB 0 50 104 ABX - CEFAZOLIN 50 104 LR 0 Oral 260 960 Output: Smith 1200 1675 Other: Estimated Void Medium Date of Last Bowel 05/10/17 Movement # Voids 1 Assessment: 56 y/o male s/p L MARSHALL by Dr. Wright 05/10. Plan: - DVT prophylaxis- ASA BID at home, lovenox while inpatient - Continue PT/ OT - continue current pain regimen - Possible d/c tomorrow Active Medications Generic Name Dose Route Start Last Admin Trade Name Freq PRN Reason Stop Dose Admin Acetaminophen 650 mg 05/10/17 09:06 Tylenol Tab* PO Q4H PRN PAIN OR TEMPERATURE Amlodipine Besylate 5 mg 05/11/17 09:00 05/11/17 09:15 Norvasc Tab* PO 5 mg QAM CAIT Administration Atorvastatin Calcium 20 mg 05/11/17 09:00 05/11/17 08:05 Lipitor* PO 20 mg QAM CAIT Administration Bisacodyl 10 mg 05/10/17 09:06 Dulcolax Supp* CO DAILY PRN constipation Diphenhydramine HCl 25 mg 05/11/17 06:00 Benadryl Iv* IV Q6H PRN itching Diphenhydramine HCl 25 mg 05/11/17 06:00 Benadryl Po* PO Q6H PRN itching Docusate Sodium 100 mg 05/10/17 21:00 05/11/17 08:05 Colace Cap* PO 100 mg BID CAIT Administration Enoxaparin Sodium 40 mg 05/11/17 12:00 05/11/17 12:53 Lovenox(*) SUBCUT 40 mg Q24H CAIT Administration Lactated Ringer's 1,000 mls @ 100 mls/hr 05/10/17 10:00 05/10/17 23:25 Lactated Ringers 1000 Ml Bag* IV 100 mls/hr PER RATE CAIT Administration Lactulose 30 ml 05/10/17 09:06 Lactulose* PO Q6H PRN constipation Magnesium Hydroxide 30 ml 05/10/17 21:00 05/11/17 08:05 Milk Of Magnesia Liq* PO 30 ml BID CAIT Administration Morphine Sulfate 2 mg 05/11/17 06:00 Morphine Inj (Syringe)* IV Q2H PRN PAIN - BREAKTHROUGH Ondansetron HCl 4 mg 05/11/17 06:00 Zofran Inj* IV Q6H PRN nausea Ondansetron HCl 4 mg 05/11/17 06:00 Zofran Tab* PO Q6H PRN NAUSEA Oxycodone HCl 10 mg 05/11/17 06:00 05/11/17 12:52 Roxycodone Tab* PO 10 mg Q4H PRN Administration PAIN Oxycodone/Acetaminophen 1 tab 05/11/17 06:00 Percocet 5/325 Tab* PO Q4H PRN PAIN Oxycodone/Acetaminophen 2 tab 05/11/17 06:00 05/11/17 10:19 Percocet 5/325 Tab* PO 2 tab Q4H PRN Administration PAIN Pharmacy Profile Note 1 note 05/13/17 08:41 Scopolamine Patch Remove* PATCH OFF 05/13/17 08:42 .AFTER 72 HOURS ONE Pharmacy Profile Note 1 note 05/10/17 17:00 05/10/17 17:26 Coumadin Daily Reminder* FOLLOW UP 1 note 1700 CAIT Administration Polyethylene Glycol/Electrolytes 17 gm 05/10/17 09:06 Miralax* PO DAILY PRN Constipation Scopolamine 1 patch 05/10/17 09:00 05/10/17 13:15 Transderm-Scop 1.5 Mg Patch* TRANSDERM Not Given Q72H CAIT Trazodone HCl 25 mg 05/11/17 06:00 Desyrel Tab* PO BEDTIME PRN insomnia
[2017-05-11] MEDS: amLODIPine TAB* 5 MG PO SCH (09:15)
[2017-05-11] MEDS: oxyCODONE/Acetamin 5/325 MG* TAB PO PRN ×2 (10:19→16:14)
[2017-05-11] MEDS: Enoxaparin(*) 40 MG/0.4 ML SYR SUBCUT SCH (12:53)
--- NOTE | 2017-05-11 15:07 | PN ---
Subjective Date of Service: 05/11/17 Interval History: Patient seen and examined, OOB to chair, no acute overnight events. States pain is tolerable. No c/o n/v, no chest pain, no SOB, no calf tenderness. Passing flatus. Tolerating PO. Objective Active Medications: Acetaminophen (Tylenol Tab*) 650 mg PO Q4H PRN PRN Reason: PAIN OR TEMPERATURE Amlodipine Besylate (Norvasc Tab*) 5 mg PO QAM [facility] Last Admin: 05/11/17 09:15 Dose: 5 mg Atorvastatin Calcium (Lipitor*) 20 mg PO QAM [facility] Last Admin: 05/11/17 08:05 Dose: 20 mg Bisacodyl (Dulcolax Supp*) 10 mg [place] DAILY PRN PRN Reason: constipation Diphenhydramine HCl (Benadryl Iv*) 25 mg IV Q6H PRN PRN Reason: itching Diphenhydramine HCl (Benadryl Po*) 25 mg PO Q6H PRN PRN Reason: itching Docusate Sodium (Colace Cap*) 100 mg PO BID [facility] Last Admin: 05/11/17 08:05 Dose: 100 mg Enoxaparin Sodium (Lovenox(*)) 40 mg SUBCUT Q24H [facility] Last Admin: 05/11/17 12:53 Dose: 40 mg Lactated Ringer's (Lactated Ringers 1000 Ml Bag*) 1,000 mls @ 100 mls/hr IV PER RATE [facility] Last Admin: 05/10/17 23:25 Dose: 100 mls/hr Lactulose (Lactulose*) 30 ml PO Q6H PRN PRN Reason: constipation Magnesium Hydroxide (Milk Of Magnesia Liq*) 30 ml PO BID [facility] Last Admin: 05/11/17 08:05 Dose: 30 ml Morphine Sulfate (Morphine Inj (Syringe)*) 2 mg IV Q2H PRN PRN Reason: PAIN - BREAKTHROUGH Ondansetron HCl (Zofran Inj*) 4 mg IV Q6H PRN PRN Reason: nausea Ondansetron HCl (Zofran Tab*) 4 mg PO Q6H PRN PRN Reason: NAUSEA Oxycodone HCl (Roxycodone Tab*) 10 mg PO Q4H PRN PRN Reason: PAIN Last Admin: 05/11/17 12:52 Dose: 10 mg Oxycodone/Acetaminophen (Percocet 5/325 Tab*) 1 tab PO Q4H PRN PRN Reason: PAIN Oxycodone/Acetaminophen (Percocet 5/325 Tab*) 2 tab PO Q4H PRN PRN Reason: PAIN Last Admin: 05/11/17 10:19 Dose: 2 tab Pharmacy Profile Note (Scopolamine Patch Remove*) 1 note PATCH OFF .AFTER 72 HOURS ONE Stop: 05/13/17 08:42 Pharmacy Profile Note (Coumadin Daily Reminder*) 1 note FOLLOW UP 1700 [facility] Last Admin: 05/10/17 17:26 Dose: 1 note Polyethylene Glycol/Electrolytes (Miralax*) 17 gm PO DAILY PRN PRN Reason: Constipation Scopolamine (Transderm-Scop 1.5 Mg Patch*) 1 patch TRANSDERM Q72H [facility] Last Admin: 05/10/17 13:15 Dose: Not Given Trazodone HCl (Desyrel Tab*) 25 mg PO BEDTIME PRN PRN Reason: insomnia Vital Signs - 8 hr 05/11/17 05/11/17 05/11/17 07:50 08:01 08:05 Temperature 98.1 F Pulse Rate 58 Respiratory 16 16 16 Rate Blood Pressure 115/67 (mmHg) O2 Sat by Pulse 97 97 Oximetry 05/11/17 05/11/17 05/11/17 08:08 10:05 10:19 Temperature Pulse Rate Respiratory 16 16 16 Rate Blood Pressure (mmHg) O2 Sat by Pulse Oximetry 05/11/17 05/11/17 12:52 12:55 Temperature Pulse Rate Respiratory 16 16 Rate Blood Pressure (mmHg) O2 Sat by Pulse Oximetry Oxygen Devices in Use Now: None Appearance: Well appearing, NAD Eyes: No Scleral Icterus, PERRLA Ears/Nose/Mouth/Throat: NL Teeth, Lips, Gums, Mucous Membranes Moist Neck: NL Appearance and Movements; NL JVP Respiratory: Symmetrical Chest Expansion and Respiratory Effort, Clear to Auscultation Cardiovascular: NL Sounds; No Murmurs; No JVD, RRR Abdominal: NL Sounds; No Tenderness; No Distention, No Hepatosplenomegaly Extremities: No Edema, No Clubbing, Cyanosis - Dressing CDI Neurological: Alert and Oriented x 3, NL Sensation, NL Muscle Strength and Tone Nutrition: Taking PO's Result Diagrams: 05/11/17 05:34 05/11/17 05:34 Assess/Plan/Problems-Billing Assessment: This is a 56 year old male with PMH sig for HTN., HLP and GERD that presents with end stage degenerative OA of the hip, POD1, s/p LTHA. - Patient Problems (1) Osteoarthritis of left hip Code(s): M16.12 - UNILATERAL PRIMARY OSTEOARTHRITIS, LEFT HIP SNOMED Code(s): 169381254195799 Comment: - POD1, s/p LTHA - POC as per ortho - Hip precautions, OOB with PT, pain control PRN - DVT prophy with lovenox - H&H stable (2) GERD (gastroesophageal reflux disease) Code(s): K21.9 - GASTRO-ESOPHAGEAL REFLUX DISEASE WITHOUT ESOPHAGITIS SNOMED Code(s): 283666015 Comment: - Bowel regimen (3) Hypertension Code(s): I10 - ESSENTIAL (PRIMARY) HYPERTENSION SNOMED Code(s): 78273331 Comment: - Daily amlodipine - Hold J CARLOS for now (4) Hyperlipidemia Code(s): E78.5 - HYPERLIPIDEMIA, UNSPECIFIED SNOMED Code(s): 60054219 Comment: - Continue daily statin Status and Disposition: Remain inpatient under ortho service. Counseling and/or Coordination of Care Minutes: Coordinated with patient and staff. Time spent 30mins
[2017-05-12] MEDS: oxyCODONE/Acetamin 5/325 MG* TAB PO PRN ×3 (00:59→09:17)
[2017-05-12 05:38] LABS: Hematocrit 33 % (42-52)
[2017-05-12] MEDS: Docusate CAP* 100 MG PO SCH (09:17)
[2017-05-12] MEDS: Atorvastatin* 20 MG TAB PO SCH (09:17)
[2017-05-12] MEDS: amLODIPine TAB* 5 MG PO SCH (09:17)
[2017-05-12] MEDS: Magnesium Hydroxide LIQ* 30 ML UDC PO SCH (09:19)
--- NOTE | 2017-05-12 09:58 | PN ---
Progress Note - Progress Note Date of Service: 05/12/17 SOAP: Subjective: Pt. is alert, pain controlled, wants to go home. Objective: LLE - dressing changed, inc c/d/i. distally nvi. thigh swollen, soft. Vital Signs: Temp Pulse Resp BP Pulse Ox 98.3 F 70 18 151/69 100 05/12/17 08:06 05/12/17 08:06 05/12/17 09:17 05/12/17 08:06 05/12/17 08:06 Laboratory Results - last 24 hr 05/12/17 05/12/17 05:25 05:28 Hgb 11.0 L Hct 33 L INR (Anticoag Therapy) 0.97 Assessment: 56 yo M pod 2 s/p LTHA Plan: wbat lle pt/ot home on ecasa 325 mg bid, lovenox dose today d/c to home today
--- NOTE | 2017-05-12 10:38 | PN ---
Subjective Date of Service: 05/12/17 Interval History: Patient seen and examined. Just returned from therapy. States pain has increased somewhat with the activity, but pain meds and ice pack helping. Denies chest pain, no SOB, no calf tenderness, no acute overnight events. Ready for discharge. Objective Active Medications: Acetaminophen (Tylenol Tab*) 650 mg PO Q4H PRN PRN Reason: PAIN OR TEMPERATURE Amlodipine Besylate (Norvasc Tab*) 5 mg PO QAM [facility] Last Admin: 05/12/17 09:17 Dose: 5 mg Atorvastatin Calcium (Lipitor*) 20 mg PO QAM [facility] Last Admin: 05/12/17 09:17 Dose: 20 mg Bisacodyl (Dulcolax Supp*) 10 mg [place] DAILY PRN PRN Reason: constipation Diphenhydramine HCl (Benadryl Iv*) 25 mg IV Q6H PRN PRN Reason: itching Diphenhydramine HCl (Benadryl Po*) 25 mg PO Q6H PRN PRN Reason: itching Docusate Sodium (Colace Cap*) 100 mg PO BID [facility] Last Admin: 05/12/17 09:17 Dose: 100 mg Enoxaparin Sodium (Lovenox(*)) 40 mg SUBCUT Q24H [facility] Last Admin: 05/11/17 12:53 Dose: 40 mg Lactated Ringer's (Lactated Ringers 1000 Ml Bag*) 1,000 mls @ 100 mls/hr IV PER RATE [facility] Last Admin: 05/10/17 23:25 Dose: 100 mls/hr Lactulose (Lactulose*) 30 ml PO Q6H PRN PRN Reason: constipation Magnesium Hydroxide (Milk Of Magnesia Liq*) 30 ml PO BID [facility] Last Admin: 05/12/17 09:19 Dose: Not Given Morphine Sulfate (Morphine Inj (Syringe)*) 2 mg IV Q2H PRN PRN Reason: PAIN - BREAKTHROUGH Ondansetron HCl (Zofran Inj*) 4 mg IV Q6H PRN PRN Reason: nausea Ondansetron HCl (Zofran Tab*) 4 mg PO Q6H PRN PRN Reason: NAUSEA Oxycodone HCl (Roxycodone Tab*) 10 mg PO Q4H PRN PRN Reason: PAIN Last Admin: 05/11/17 20:32 Dose: 10 mg Oxycodone/Acetaminophen (Percocet 5/325 Tab*) 1 tab PO Q4H PRN PRN Reason: PAIN Oxycodone/Acetaminophen (Percocet 5/325 Tab*) 2 tab PO Q4H PRN PRN Reason: PAIN Last Admin: 05/12/17 09:17 Dose: 2 tab Pharmacy Profile Note (Scopolamine Patch Remove*) 1 note PATCH OFF .AFTER 72 HOURS ONE Stop: 05/13/17 08:42 Pharmacy Profile Note (Coumadin Daily Reminder*) 1 note FOLLOW UP 1700 [facility] Last Admin: 05/11/17 17:44 Dose: Not Given Polyethylene Glycol/Electrolytes (Miralax*) 17 gm PO DAILY PRN PRN Reason: Constipation Scopolamine (Transderm-Scop 1.5 Mg Patch*) 1 patch TRANSDERM Q72H [facility] Last Admin: 05/10/17 13:15 Dose: Not Given Trazodone HCl (Desyrel Tab*) 25 mg PO BEDTIME PRN PRN Reason: insomnia Vital Signs - 8 hr 05/12/17 05/12/17 05/12/17 03:00 05:13 05:17 Temperature 98.3 F Pulse Rate 68 Respiratory 16 16 17 Rate Blood Pressure 144/73 (mmHg) O2 Sat by Pulse 100 Oximetry 05/12/17 05/12/17 05/12/17 07:00 08:00 08:06 Temperature 98.3 F Pulse Rate 70 Respiratory 16 16 16 Rate Blood Pressure 151/69 (mmHg) O2 Sat by Pulse 100 100 Oximetry 05/12/17 09:17 Temperature Pulse Rate Respiratory 18 Rate Blood Pressure (mmHg) O2 Sat by Pulse Oximetry Oxygen Devices in Use Now: None Appearance: OOB to chair, well appearing, NAD Eyes: No Scleral Icterus, PERRLA Ears/Nose/Mouth/Throat: NL Teeth, Lips, Gums, Mucous Membranes Moist Neck: NL Appearance and Movements; NL JVP Respiratory: Symmetrical Chest Expansion and Respiratory Effort, Clear to Auscultation Cardiovascular: NL Sounds; No Murmurs; No JVD, RRR Abdominal: NL Sounds; No Tenderness; No Distention - passing flatus, one BM Skin: No Rash or Ulcers - dressing changed today by surgery, CDI Neurological: Alert and Oriented x 3, NL Sensation, NL Muscle Strength and Tone Nutrition: Taking PO's Result Diagrams: 05/12/17 05:25 05/11/17 05:34 Assess/Plan/Problems-Billing Assessment: This is a 56 year old male with PMH sig for HTN., HLP and GERD that presents with end stage degenerative OA of the hip, POD2, s/p LTHA. Course: Progressing. - Patient Problems (1) Osteoarthritis of left hip Code(s): M16.12 - UNILATERAL PRIMARY OSTEOARTHRITIS, LEFT HIP SNOMED Code(s): 554787821492895 Comment: - POD2, s/p LTHA - POC as per ortho - Hip precautions, OOB with PT, pain control PRN - DVT prophy with lovenox - H&H stable - Medically optimized for DC as per surgery (2) GERD (gastroesophageal reflux disease) Code(s): K21.9 - GASTRO-ESOPHAGEAL REFLUX DISEASE WITHOUT ESOPHAGITIS SNOMED Code(s): 245152685 Comment: - Continue bowel regimen while on narcotic pain meds (3) Hypertension Code(s): I10 - ESSENTIAL (PRIMARY) HYPERTENSION SNOMED Code(s): 21498493 Comment: - Daily amlodipine - Hold J CARLOS for now, may restart when home (4) Hyperlipidemia Code(s): E78.5 - HYPERLIPIDEMIA, UNSPECIFIED SNOMED Code(s): 58008421 Comment: - Continue daily statin Status and Disposition: Medically optimized for DC home as per ortho. Counseling and/or Coordination of Care Minutes: Coordinated with patient and staff. Time spent >45mins
[2017-05-12 12:09] VITALS: BP 153/60
[2017-05-12] MEDS: Enoxaparin(*) 40 MG/0.4 ML SYR SUBCUT SCH (12:12)
[2017-05-12] MEDS: oxyCODONE TAB* 5 MG TAB PO PRN (12:17)
--- NOTE | 2017-05-12 14:48 | DS ---
AMENDED REPORT NOW INCLUDES COSIGNER DESIGNATION - ESIGNED BEFORE ADJUSTMENT DISCHARGE SUMMARY: DATE OF ADMISSION: 05/10/17 DATE OF DISCHARGE: 05/12/17 PROVIDER: Savannah Wright MD * (DICTATED BY MARKEL HENRY) ADMITTING DIAGNOSIS: Severe end-stage osteoarthritis of the left hip. DISCHARGE DIAGNOSIS: Severe end-stage osteoarthritis of the left hip, status post left total hip arthroplasty. SECONDARY DIAGNOSES: 1. Hypertension. 2. Gastroesophageal reflux disease. 3. High cholesterol. HISTORY OF PRESENT ILLNESS: Mr. Reyes is a 56-year-old gentleman who has had ongoing complaints of left hip pain and failed conservative management. He elected to proceed with a left total hip arthroplasty by Dr. Wright. HOSPITAL COURSE: On 05/10/17, the patient underwent a successful left total hip arthroplasty by Dr. Wright. He recovered briefly in the post-anesthesia care unit and postoperative x-rays were satisfactory. He was then transferred to the short- stay surgical unit in stable condition. On postop day #1, the patient's pain was controlled with oral and IV pain medication. He had mild acute blood loss anemia with an H and H of 10.9 and 32. INR was 0.94 with 6 mg of Coumadin previously. He was able to participate with physical therapy and ambulating a short distance with the use of a rolling walker. On postop day #2 , the patient's pain was controlled with oral pain medication only. He was able to participate more actively with physical therapy and ambulate independently with a rolling walker for a longer distance. H and H was 11.0 and 33. INR 0.97 after 6 mg of Coumadin previously. Throughout the hospital course, the patient remained normotensive and afebrile. He was found stable for discharge home on postop day 2. DISCHARGE CONDITION: Stable. DISCHARGE MEDICATIONS: The patient will have: 1. Percocet 5/325 mg, 1 to 2 tabs p.o. q.4 to 6 hours p.r.n. pain. 2. Colace 100 mg p.o. b.i.d. p.r.n. constipation. 3. Aspirin 325 mg p.o. b.i.d. for DVT prophylaxis. He will resume his home medications of: 1. Norvasc 5 mg p.o. daily. 2. Zestoretic 20/12.5 mg p.o. daily. 3. Lipitor 20 mg p.o. daily. 4. He will discontinue his tramadol as needed for pain. DISCHARGE INSTRUCTIONS: The patient is reminded of his posterior hip precautions, which he will follow. He will not cross his legs, internally rotate or flex the hip past 90. He will have visiting nurse service for wound care checks and home physical therapy. He is weightbearing as tolerated with a rolling walker. He will follow up in the office 10 to [address] Wright. Wound care; the patient will leave his dressing, clean, dry, and intact until postop day #4. He may remove the dressing at that time and shower normally. He is understanding to reapply dry dressing as needed. He will not submerge the incision in a bathtub, hot tub, or swimming pool. He will call the office with any questions or concerns. He is understanding to go directly to the emergency room without any chest pain, shortness of breath, fever greater than 101.5, calf pain, or swelling. All of the patient's questions were answered to his full satisfaction. He is understanding to call if he develops problems or concerns. MARKEL HENRY [id number]/[facility] #: [id number] [facility]
[2017-05-13] MEDS ORDERED: Scopolamine PATCH Remove* 1 NOTE MISC PATCH OFF ONE (08:41)
== END 2017-05-12 13:25 | disposition home health service (06) | DRG 301 ==
LOC: AA 06:26 → SSU 12:45
PROVIDERS: ADMIT Orthopaedic Surgery Adult Reconstructive Orthopaedic Surgery; ATTEND Orthopaedic Surgery Adult Reconstructive Orthopaedic Surgery
PROC: 0SRB04A Replacement of Left Hip Joint with Ceramic on Polyethylene Synthetic Substitute, Uncemented, Open Approach (ICD-10-PCS; principal; 2017-05-10 07:30)
DX: M16.12 Unilateral primary osteoarthritis, left hip (principal); M48.02 Spinal stenosis, cervical region; D62 Acute posthemorrhagic anemia; I10 Essential (primary) hypertension; Z96.641 Presence of right artificial hip joint; K21.9 Gastro-esophageal reflux disease without esophagitis; M25.752 Osteophyte, left hip; E78.5 Hyperlipidemia, unspecified; M48.061 Spinal stenosis, lumbar region without neurogenic claudication; Z96.651 Presence of right artificial knee joint; M51.26 Other intervertebral disc displacement, lumbar region; Z72.89 Other problems related to lifestyle; Z79.82 Long term (current) use of aspirin; Z82.49 Family history of ischemic heart disease and other diseases of the circulatory system; Z80.9 Family history of malignant neoplasm, unspecified
CPT/HCPCS: 36415; 80048; 85014; 85018; 85610; A9270-GY; C1713; C1776; J0461; J0690; J1100; J1650; J2250; J2405; J2704; J2795